=== PATIENT | female | born 1975 | race Caucasian/White ===

== ENCOUNTER → 2018-10-08 17:53 | Outpatient (CLI) | payer BC ==
[2015-07-16 09:08] VITALS: BMI 21.9
[~2018-10-08 17:53] MED LIST: COLACE100 MG PO; CONCERTA 54 MG54 MG PO; IBUPROFEN200 MG PO
== END | disposition home or self-care (01) ==
LOC: D.MAMMO 15:30
PROVIDERS: ATTEND Family Medicine
DX: Z12.31 Encounter for screening mammogram for malignant neoplasm of breast (principal)